=== PATIENT | female | born 1955 | race Caucasian/White ===

== ENCOUNTER 2018-08-25 01:33 | Emergency (ER) | payer OTHER ==
[~2018-08-25] VITALS: Ht 157.5 cm; Wt 77.1 kg
[~2018-08-25 01:33] MED LIST: ASPIRIN EC81 M1 PO; FLEXERIL PO; HYDROCHLOROTH12.5 M1 PO; LOPRESSOR 50 MG50 M1 PO; NOHOMEMEDICATIONS; PERCOCET 7.5-31 EACH PO; TOPROL XL50 MG PO
[2018-08-25] MEDS ORDERED: CARDIZEM30 MG PO (01:51)
[2018-08-25 02:17] LABS: ABSOLUTE BASOPHILS 0.1 thou/uL (0.0-0.2); ABSOLUTE EOSINOPHILS 0.1 thou/uL (0.0-0.7); ABSOLUTE LYMPHOCYTES 1.4 thou/uL (0.8-5.3); ABSOLUTE MONOCYTES 0.6 thou/uL (0.0-1.2); ABSOLUTE NEUTROPHILS 6.1 thou/uL (1.6-8.1); BASOPHILS 0.7 %; EOSINOPHILS 1.4 %; HEMATOCRIT 36.6 % (37.0-47.0); HEMOGLOBIN 12.4 gm/dL (12.0-15.0); LYMPHOCYTES 16.5 %; MCH 29.5 pg (26.0-34.0); MCV 86.8 fL (80.0-100.0); MONOCYTES 7.7 %; MPV 7.3 fl. (7.2-11.1); NUCLEATED RBCS 0 /100WBC; PLATELET COUNT* 277 thou/uL (150-400); POLYS 73.7 %; RBC 4.21 mil/uL (4.20-5.00); RDW-CV 12.8 % (10.5-14.5); WBC 8.3 thou/uL (4.0-11.0)
[2018-08-25 02:21] LABS: ANION GAP 9 mmol/L (7-16); BUN 20 mg/dL (7-18); CALCIUM 9.4 mg/dL (8.5-10.1); CHLORIDE 103 mmol/L (98-107); CO2 28 mmol/L (21-32); CREATININE 0.9 mg/dL (0.6-1.3); GLUCOSE 112 mg/dL (70-99); POTASSIUM 3.4 mmol/L (3.5-5.1); SODIUM 140 mmol/L (136-145)
[2018-08-25 02:27] LABS: ALBUMIN 3.5 g/dL (3.4-5.0); ALKALINE PHOSPHATASE 67 U/L (46-116); SGOT 14 U/L (15-37); SGPT 24 U/L (30-65); TOTAL BILIRUBIN 0.2 mg/dL (<0.1-1.0); TOTAL PROTEIN 6.9 g/dL (6.4-8.2); TROPONIN-I LEVEL <0.06 ng/mL (<0.06)
[2018-08-25 03:26] VITALS: BP 112/72
--- NOTE | 2018-08-26 12:29 | EKG ---
[place] [address] ELECTROCARDIOGRAM REPORT Name: JENNI MYRICK Room: [facility]#: [id number] Admission: 08/25/18 Attend Phys: Discharge: 08/25/18 Date of : 57 Report #: [id number] THIS REPORT FOR: //name// [facility] ED Test Date: 2018-08-25 Test Time: 01:47:11 Pat Name: JENNI MYRICK Department: Room: Gender: F Face Burler: : 1955 Requested By: Juan Pablo Plaza Order Number: [id number] MD: Joe Mancini Measurements Intervals [place] Rate: 107 P: 51 FL: 162 QRS: 57 QRSD: 128 T: 5 QT: 340 QTc: 454 Interpretive Statements Sinus tachycardia Right bundle branch block Compared to ECG 09/23/2016 12:14:08 No significant changes Electronically Signed On 08-26-2018 12:29:02 PRESS OPERATOR ASSISTANT by Joe Mancini [email or web address] <ELECTRONICALLY SIGNED> By: Joe Mancini MD, [facility] 08/26/18 1229 0147 0147 Joe Mancini MD, FACC /EPI
--- NOTE | 2018-08-26 12:29 | EKG ---
[place] [address] ELECTROCARDIOGRAM REPORT Name: JENNI MYRICK Room: [facility]#: [id number] Admission: 08/25/18 Attend Phys: Discharge: 08/25/18 Date of : 57 Report #: [id number] THIS REPORT FOR: //name// [facility] ED Test Date: 2018-08-25 Test Time: 01:54:43 Pat Name: JENNI MYRICK Department: Room: Gender: F Front Maker Lockstitch: : 1955 Requested By: Juan Pablo Plaza Order Number: [id number] MD: Joe Mancini Measurements Intervals [place] Rate: 107 P: 59 [place]: 153 QRS: 58 QRSD: 133 T: 2 QT: 358 QTc: 478 Interpretive Statements Sinus tachycardia Right bundle branch block Compared to ECG 09/23/2016 12:14:08 No significant changes Electronically Signed On 08-26-2018 12:29:07 TAX AUDIT MANAGER by Joe Mancini [email or web address] <ELECTRONICALLY SIGNED> By: Joe Mancini MD, [facility] 08/26/18 1229 0154 0154 Joe Mancini MD, FACC /EPI
--- NOTE | 2018-08-26 12:29 | EKG ---
[place] [address] ELECTROCARDIOGRAM REPORT Name: JENNI MYRICK Room: [facility]#: [id number] Admission: 08/25/18 Attend Phys: Discharge: 08/25/18 Date of : 57 Report #: [id number] THIS REPORT FOR: //name// [facility] ED Test Date: 2018-08-25 Test Time: 01:38:50 Pat Name: JENNI MYRICK Department: Room: Gender: F Site Promotion Agent: : 1955 Requested By: Juan Pablo Plaza Order Number: [id number] MD: Joe Mancini Measurements Intervals [place] Rate: 167 P: 0 [place]: QRS: 101 QRSD: 108 T: -1 QT: 292 QTc: 487 Interpretive Statements Supraventricular tachycardia Compared to ECG 09/23/2016 12:14:08 Sinus tachycardia no longer present Right bundle-branch block no longer present Electronically Signed On 08-26-2018 12:28:57 WOOL SHEARER by Joe Mancini [email or web address] <ELECTRONICALLY SIGNED> By: Joe Mancini MD, [facility] 08/26/18 1228 7 Joe Mancini MD, FACC /EPI
== END 2018-08-25 03:26 | disposition home or self-care (01) ==
LOC: M.ERS 01:33
PROVIDERS: Emergency Medicine Emergency Medical Services
DX: I47.1 Supraventricular tachycardia (principal); I10 Essential (primary) hypertension

== ENCOUNTER → 2019-05-06 | Outpatient (CLI) | payer OTHER ==
[~2019-05-06] MED LIST changes: +CARDIZEM30 MG PO
--- NOTE | 2019-05-06 11:35 | 2DMMODE ---
[place] [address] 2 D/M-MODE ECHOCARDIOGRAM Name: JENNI MYRICK Room: [facility]#: [id number] Admission: 05/06/19 Attend Phys: Swetha Bunn Discharge: Date of : 57 Date of Service: 05/06/19 1134 Report #: [id number] THIS REPORT FOR: //name// APPROVED REPORT Study performed: 05/06/2019 10:02:41 EXAM: Comprehensive 2D, Doppler, and color-flow Echocardiogram Patient Location: Out-Patient BSA: 1.72 HR: 64 bpm BP: 142/80 mmHg Other Information Study Quality: Good Indications Murmur 2D Dimensions IVSd: 10.54 (7-11mm) LVOT Diam: 20.24 (18-24mm) LVDd: 43.22 mm PWd: 11.28 (7-11mm) Ascending Ao: 32.32 (22-36mm) LVDs: 22.61 (25-40mm) Aortic Root: 26.24 mm Volumes Left Atrial Volume (Systole) LA ESV Index: 18.70 mL/m2 Aortic Valve AoV Peak Alan.: 1.41 m/s AO Peak Gr.: 7.97 mmHg LVOT Max P.02 mmHg AO Mean Gr.: 4.18 mmHg LVOT Mean P.46 mmHg LVOT Max V: 0.87 m/s AO V2 VTI: 31.98 cm LVOT Mean V: 0.55 m/s [place] (VTI): 2.10 cm2 LVOT V1 VTI: 20.91 cm AI [place]: 1.82 m/s2 AI PHT: 663.35 ms Mitral Valve E/A Ratio: 1.42 MV Decel. Time: 198.91 ms MV E Max Alan.: 0.90 m/[place] [address] 2 D/M-MODE ECHOCARDIOGRAM Name: JENNI MYRICK Room: [facility]#: [id number] Admission: 05/06/19 Attend Phys: Swetha Bunn Discharge: Date of : 57 Date of Service: 05/06/19 1134 Report #: [id number] MV PHT: 57.68 ms MVA (PHT): 3.81 cm2 TDI E/Lateral E': 12.86 E/Medial E': 11.25 Medial E' Alan.: 0.08 m/s Lateral E' Alan.: 0.07 m/s Pulmonary Valve PV Peak Alan.: 0.92 m/s PV Peak Gr.: 3.36 mmHg Tricuspid Valve RAP Estimate: 5.00 mmHg TR Peak Gr.: 17.68 mmHg RVSP: 22.68 mmHg PA Pressure: 22.68 mmHg Left Ventricle The left ventricle is normal size. There is normal LV segmental wall motion. There is normal left ventricular wall thickness. Left ventricular systolic function is normal. The left ventricular ejection fraction is within the normal range. LVEF is 55-60%. The left ventricular diastolic function is normal. Right Ventricle The right ventricle is normal size. The right ventricular systolic function is normal. Atria The left atrium size is normal. The right atrium size is normal. Aortic Valve The aortic valve is normal in structure. Mild aortic regurgitation. There is no aortic valvular stenosis. Mitral Valve The mitral valve is normal in structure. Mild mitral regurgitation. No evidence of mitral valve stenosis. Tricuspid Valve The tricuspid valve is normal in structure. Mild tricuspid regurgitation. estimated pa pressure 25 mm Hg Pulmonic Valve The pulmonary valve is normal in structure. [place] [address] 2 D/M-MODE ECHOCARDIOGRAM Name: JENNI MYRICK Room: [facility]#: [id number] Admission: 05/06/19 Attend Phys: Swetha Bunn Discharge: Date of : 57 Date of Service: 05/06/19 1134 Report #: [id number] Great Vessels The aortic root is normal in size. IVC is normal in size and collapses >50% with inspiration. Pericardium There is no pericardial effusion. <Conclusion> LVEF is 55-60%. Mild aortic regurgitation. Mild mitral regurgitation. <ELECTRONICALLY SIGNED> By: Dustin Clemente MD, [facility] 05/06/19 1134 1134 1134 Dustin Clemente MD, [facility] /INF
== END ==
LOC: M.RAD 05-02 16:55 → M.CRD 10:00
DX: I08.9 Rheumatic multiple valve disease, unspecified (principal); R01.1 Cardiac murmur, unspecified; R91.1 Solitary pulmonary nodule

== ENCOUNTER → 2019-05-30 | Outpatient (CLI) | payer OTHER | LOC: M.RAD 10:12 → M.CT 11:00 | DX: Z12.31 Encounter for screening mammogram for malignant neoplasm of breast (principal); I25.10 Atherosclerotic heart disease of native coronary artery without angina pectoris; N28.1 Cyst of kidney, acquired; R91.1 Solitary pulmonary nodule ==

== ENCOUNTER 2020-03-06 14:20 | Emergency (ER) | payer OTHER ==
[~2020-03-06] VITALS: Ht 167.6 cm; Wt 77.1 kg
[2020-03-06] MEDS ORDERED: NORCO 5-325 TA1 EAC2 PO (18:00)
[2020-03-06 18:45] VITALS: BP 127/70
== END 2020-03-06 19:38 | disposition home or self-care (01) ==
LOC: M.ERS 14:20
DX: S59.201A Unspecified physeal fracture of lower end of radius, right arm, initial encounter for closed fracture (principal); S52.611A Displaced fracture of right ulna styloid process, initial encounter for closed fracture; I10 Essential (primary) hypertension; W10.8XXA Fall (on) (from) other stairs and steps, initial encounter; Y93.89 Activity, other specified; Y92.89 Other specified places as the place of occurrence of the external cause; Y99.8 Other external cause status

== ENCOUNTER → 2020-03-16 | Outpatient (CLI) | payer OTHER ==
[~2020-03-16] MED LIST changes: +NORCO 5-325 TA1 EAC2 PO
== END ==
LOC: M.LAB 16:43
PROVIDERS: ATTEND Orthopaedic Surgery
DX: Z01.818 Encounter for other preprocedural examination (principal); S52.591A Other fractures of lower end of right radius, initial encounter for closed fracture; Z11.59 Encounter for screening for other viral diseases; X58.XXXA Exposure to other specified factors, initial encounter; Y93.89 Activity, other specified; Y92.89 Other specified places as the place of occurrence of the external cause; Y99.8 Other external cause status

== ENCOUNTER → 2021-01-28 | Outpatient (CLI) | payer OTHER | LOC: M.RAD 09:51 | PROVIDERS: ATTEND Nurse Practitioner Family | DX: Z12.31 Encounter for screening mammogram for malignant neoplasm of breast (principal) ==

== ENCOUNTER → 2021-01-28 | Outpatient (CLI) | payer OTHER | LOC: M.CT 09:45 | PROVIDERS: ATTEND Nurse Practitioner Family | DX: Z13.6 Encounter for screening for cardiovascular disorders (principal) ==